=== PATIENT | male | born 1990 | race African-American/Black ===

== ENCOUNTER 2019-12-08 01:37 | Emergency (ER) | payer BC, SELFPAY ==
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
[2019-12-08 01:46] VITALS: BP 126/71; PULSE 109; RESP 18; TEMP 36.4; O2SAT 97
--- NOTE | 2019-12-08 02:03 | ED.UPPEXIN ---
HPI - Extremity Injury (Upper) General Chief Complaint: Extremity Injury, Upper Stated Complaint: nail to left thumb Time Seen by Provider: 12/08/19 01:55 Source: RN notes reviewed History of Present Illness HPI narrative: Patient presents emergency department from home for puncture wound to left thumb. Patient states approximate 1 hour prior to arrival he was opening a gate when he got stuck with any nail in the left medial palmar thumb. Patient states he is up-to-date on his tetanus shot. He denies any other injury. States he believes the entire nail came out. Notes pain in the area but denies any other symptoms at this time. States he did wash it off with peroxide Related Data Allergies Allergy/AdvReac Type Severity Reaction Status Date / Time No Known Allergies Allergy Verified 12/08/19 01:46 Review of Systems Review of Systems: Narrative: Gen.: Denies fevers or chills Musculoskeletal: See HPI Neuro: Denies numbness, tingling, weakness Skin: Denies rash Endo: Denies DM PMFSH Past Medical History Medical History (Updated 12/08/19 @ 02:04 by Steve Celis DO) Patient denies significant medical history Social History Social History (Updated 12/08/19 @ 02:03 by Steve Celis DO) Tobacco type: cigars Exam Narrative: Exam Narrative: APPEARANCE: No acute distress, nontoxic, resting in bed Eyes: EOMI HEENT: Normocephalic, atraumatic, RESPIRATORY: No respiratory distress MUSCULOSKELETAl: Left medial palmar thumb has puncture wound present with no active bleeding, tender to palpation around the wound no foreign body seen, full flexion extension of the first MCP and IP joint on the left, capillary refill less than 3 seconds, neurovascular intact NEURO: Awake and alert. Following commands, speech normal, no focal deficits SKIN:: Warm, dry. Normal Color no rash or lesions Course Course Emergency Course: Discussed with patient results of workup and diagnosis. Discussed need for follow-up with primary care, proper use of medication, and reasons to return to the emergency department. Patient understands and agrees to current treatment plan Vital Signs Vital signs: Vital Signs Temperature 97.6 F 12/08/19 01:46 Pulse Rate 109 H 12/08/19 01:46 Respiratory Rate 18 12/08/19 01:46 Blood Pressure 126/71 12/08/19 01:46 Pulse Oximetry 97 12/08/19 01:46 Temperature 97.6 F 12/08/19 01:46 Pulse Rate 109 H 12/08/19 01:46 Respiratory Rate 18 12/08/19 01:46 Blood Pressure 126/71 12/08/19 01:46 Pulse Oximetry 97 12/08/19 01:46 Discharge Plan Discharge Clinical Impression: Puncture wound of left thumb Patient Disposition: Home, Self-Care Condition: Stable Instructions: Antibiotic Form, Puncture Wound (ED) Additional Instructions: Return for increasing pain bleeding from the wound, signs of infection or any other symptoms of concern Prescriptions: New cephalexin [Keflex] 500 mg capsule 500 mg PO TID Qty: 15 RF: 0 ibuprofen [IBU] 600 mg tablet 600 mg PO Q6H PRN (Reason: pain) Qty: 10 RF: 0 Follow-up/Referrals: PHYSICIAN NOT ON STAFF,NONSTAFF [Primary Care Provider] - Alberto Berg MD [Physician] - (Follow-up in 1-2 days for further on-call physician treatment and evaluation) Time of Disposition: 02:06
[2019-12-08] MEDS: CEPHALEXIN 500 MG CAPSULE PO (02:10)
== END 2019-12-08 02:10 | disposition home or self-care (01) ==
LOC: ANHED 02:11
PROVIDERS: Emergency Provider Emergency Medicine
DX: S61.032A Puncture wound without foreign body of left thumb without damage to nail, initial encounter (principal); W45.0XXA Nail entering through skin, initial encounter
CPT/HCPCS: 73130; 99283; A9270

== ENCOUNTER 2023-07-29 23:58 | Emergency (ER) | payer OTHER, SELFPAY ==
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
--- NOTE | ~2023-07-29 | XR_ITS ---
XR hand LT min 3V 07/30/2023 01:25 Indication: Left thumb pain Procedure: 3 views left hand Comparison: 12/08/2011 Findings: No fracture, subluxation or dislocation. Mild polyarticular osteoarthritis. No soft tissue abnormality. No foreign bodies. Impression: 1: No acute bone or joint abnormality. Reviewed, dictated and finalized at location A. STRY CONSULTANT Impression: 1: No acute bone or joint abnormality.
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
[2023-07-30 00:03] VITALS: BP 157/83; PULSE 80; RESP 16; TEMP 36.8; O2SAT 100
[2023-07-30 00:39] VITALS: BP 141/90; PULSE 74; RESP 23; O2SAT 100
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
[2023-07-30 01:04] LABS: Basophils Percent Auto 0.3 % (0.2-1.2); Eosinophils Absolute Auto 0.1 K/mm3 (0-0.3); Eosinophils Percent Auto 1.7 % (0-4.4); Hematocrit 42.4 % (42.0-52.0); Hemoglobin 14.2 g/dL (14.0-18.0); Immature Granulocyte Absolute 0.04 K/mm3 (0.00-0.031); Immature Granulocyte Percent A 0.6 % (0-0.5); Lymphocytes Absolute Auto 2.85 K/mm3 (0.9-3.2); Lymphocytes Percent Auto 41.4 % (18.3-44.2); Mean Corpuscular HGB Conc 33.5 g/dl (32-36); Mean Corpuscular Hemoglobin 28.4 pg (26-34); Mean Corpuscular Volume 84.8 fl (80-100); Mean Platelet Volume 10.6 fl (7.4-10.4); Monocytes Absolute Auto 0.7 K/mm3 (0.1-0.6); Monocytes Percent Auto 10.6 % (2.6-8.5); Neutrophils Absolute Auto 3.1 K/mm3 (1.3-6.7); Neutrophils Percent Auto 45.4 % (45.5-73.1); Platelet Count Result 267 k/mm3 (150-375); Red Cell Distribution Width 13.8 % (11.5-14.5); White Blood Count 6.9 K/mm3 (4.5-10.0)
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
[2023-07-30] MEDS: ACETAMINOPHEN 500 MG TABLET 1000 MG PO (01:28)
[2023-07-30] MEDS: IBUPROFEN 400 MG TABLET 800 MG PO (01:29)
[2023-07-30] MEDS: methocarbamoL 750 MG TABLET 1500 MG PO (01:30)
[2023-07-30 02:42] VITALS: BP 139/64; PULSE 73; RESP 20; O2SAT 96
--- NOTE | 2023-07-30 03:15 | PC.NURSE ---
Report received from Chyna Steel RN .
[2023-07-30 03:51] VITALS: BP 137/62; PULSE 74; RESP 20; O2SAT 98
== END 2023-07-30 03:59 | disposition home or self-care (01) ==
PROVIDERS: Emergency Provider Emergency Medicine; PCP Internal Medicine
DX: S09.90XA Unspecified injury of head, initial encounter (principal); S69.92XA Unspecified injury of left wrist, hand and finger(s), initial encounter; S19.9XXA Unspecified injury of neck, initial encounter; F17.290 Nicotine dependence, other tobacco product, uncomplicated; V43.52XA Car driver injured in collision with other type car in traffic accident, initial encounter
CPT/HCPCS: 36415; 70450; 71045; 72125; 72131; 73110; 73130; 85025; 99284; A9270